=== PATIENT | female | born 2000 | race Two or more races ===

== ENCOUNTER 2021-07-27 16:25 | Emergency (ER) | payer MEDICAID ==
[~2021-07-27] VITALS: Ht 167.6 cm; Wt 61.2 kg
[2021-07-27 16:40] VITALS: BP_SYST 134
--- NOTE | 2021-07-27 16:58 | NUR ---
LUIS FERNANDO La examining patient.
[2021-07-27] MEDS ORDERED: DIPHENHYDRAMINE INJ 50 MG/ML VIAL IVP ONE (17:00)
[2021-07-27] MEDS ORDERED: METHYLPREDNISOLONE SOD SUCC 40 MG/ML VIAL IVP ONE (17:00)
--- NOTE | 2021-07-27 17:01 | NUR ---
PT TRIAGED TO BED 4 MD AT BEDSIDE
[2021-07-27 17:06] VITALS: BP_SYST 133
--- NOTE | 2021-07-27 17:07 | NUR ---
Patient given written and verbal discharge instructions and verbalizes understanding. LUIS FERNANDO WONG MD discussed with patient the results and treatment provided. Patient in stable condition. ID arm band removed. Patient educated on pain management and to follow up with PMD. Pain Scale 0. Opportunity for questions provided and answered. Medication side effect fact sheet provided.
== END 2021-07-27 17:07 | disposition home or self-care (01) ==
LOC: SED 16:25
DX: S01.511A Laceration without foreign body of lip, initial encounter (principal); Z88.8 Allergy status to other drugs, medicaments and biological substances; W21.05XA Struck by basketball, initial encounter; Y93.67 Activity, basketball; Y92.89 Other specified places as the place of occurrence of the external cause; Y99.8 Other external cause status
CPT/HCPCS: 99281